=== PATIENT | female | born 1990 | race American Indian/Alaskan Native ===

== ENCOUNTER 2020-08-27 20:28 | Emergency (ER) | payer SELFPAY ==
--- NOTE | 2020-08-28 00:23 | Emergency Department Report ---
ED General Adult HPI - General Chief complaint: Urogenital-Female Stated complaint: LUMP RT BREAST/FEELS HARD Time Seen by Provider: 08/28/20 00:07 Source: patient Mode of arrival: Ambulatory Limitations: No Limitations - History of Present Illness Initial comments: 29-year-old -[place] female patient presents with complaints of right breast mass x1 year, tender over the past day. Patient states over the past year the mass has been enlarging. She denies any redness, swelling to the breast, nipple discharge, fever/chills/sweats, or history/family history of breast cancer. She reports she is to have her yearly physical in a few weeks. Severity scale (0 -10): 3 - Related Data Allergies Allergy/AdvReac Type Severity Reaction Status Date / Time No Known Allergies Allergy Unverified 08/27/20 22:00 ED Review of Systems ROS: Stated complaint: LUMP RT BREAST/FEELS HARD Other details as noted in HPI Constitutional: denies: diaphoresis, fever, malaise, weakness Cardiovascular: denies: chest pain Hematological/Lymphatic: denies: swollen glands ED Past Medical Hx - Past Medical History Previous Medical History?: Yes Hx Psychiatric Treatment: Yes (Bipolar Disorder) - Surgical History Past Surgical History?: No - Social History Smoking Status: Former Smoker Substance Use Type: Marijuana ED Physical Exam - General Limitations: No Limitations General appearance: alert, in no apparent distress - Head Head exam: Present: atraumatic, normocephalic - Eye Eye exam: Present: normal appearance. Absent: scleral icterus - Respiratory Respiratory exam: Present: other (Tender, mobile round approximately 1 to 2 cm nodule noted to right breast at about 10:00 without overlying erythema, skin changes, or nipple discharge noted). Absent: respiratory distress - Cardiovascular Cardiovascular Exam: Present: regular rate - Extremities Exam Extremities exam: Present: full ROM - Neurological Exam Neurological exam: Present: alert, oriented X3 - Psychiatric Psychiatric exam: Present: normal affect, normal mood - Skin Skin exam: Present: warm, dry, intact, normal color. Absent: rash, cyanosis, erythema ED Course Vital Signs 08/27/20 21:50 Temperature 98.5 F Pulse Rate 73 Respiratory 18 Rate Blood Pressure 113/73 O2 Sat by Pulse 100 Oximetry ED Medical Decision Making - Medical Decision Making 29-year-old -[place] female patient presents with complaints of right breast mass x1 year, tender over the past day. Patient states over the past year the mass has been enlarging. She denies any redness, swelling to the breast, nipple discharge, fever/chills/sweats, or history/family history of breast cancer. She reports she is to have her yearly physical in a few weeks. Suspect breast cyst given exam, however I do recommend patient follows up with her primary care doctor within 3 days and a breast specialist for further examination. She is well-appearing, her vitals are normal, she is stable for discharge home. Critical care attestation.: If time is entered above; I have spent that time in minutes in the direct care of this critically ill patient, excluding procedure time. ED Disposition Clinical Impression: Breast mass Disposition: DC-01 TO HOME OR SELFCARE Is pt being admited?: No Condition: Stable Instructions: Breast Cyst Referrals: PRIMARY CARE, [Referring] - 3-5 Days
== END 2020-08-28 00:30 | disposition home or self-care (01) ==
LOC: ED 20:28
CPT/HCPCS: 99282

== ENCOUNTER 2021-07-10 12:38 | Emergency (ER) | payer MEDICAID ==
[2021-07-10 16:45] LABS: Basophils % (Auto) 0.7 % (0.0-1.8); Hemoglobin 12.9 gm/dl (10.1-14.3); Lymphocytes # (Auto) 1.9 K/mm3 (1.2-5.4); Lymphocytes % (Auto) 43.3 % (13.4-35.0); Mean Corpuscular HGB Conc 34 % (30-34); Mean Corpuscular Volume 96 fl (79-97); Monocytes # (Auto) 0.4 K/mm3 (0.0-0.8); Monocytes % (Auto) 8.8 % (0.0-7.3); Platelet Count 363 K/mm3 (140-440); Red Blood Count 3.97 M/mm3 (3.65-5.03); Red Cell Distribution Width 13.7 % (13.2-15.2)
[2021-07-10 17:05] LABS: Alanine Aminotransferase 12 units/L (7-56); Albumin 4.6 g/dL (3.9-5); BUN/Creatinine Ratio 10; Blood Urea Nitrogen 8 mg/dL (7-17); Calcium 9.2 mg/dL (8.4-10.2); Hemolysis Index 9
--- NOTE | 2021-07-10 17:26 | Emergency Department Report ---
ED Female HPI - General Chief complaint: Vaginal Bleeding Stated complaint: /BLEEDING/ABD PAIN Source: patient Mode of arrival: Ambulatory Limitations: No Limitations - History of Present Illness Initial comments: 30-year-old female presents to the ED complaining vaginal spotting x1 day. She states that she had last normal menstrual cycle on June .patient states took a home test which was positive. Patient states that she noticed x3 days ago that she started having heavy bleeding and abdominal cramping that has since resolved. Patient denies any shortness of breath , chest pain ,nausea or vomiting. No acute distress noted. No ill appearance noted. MD Complaint: vaginal bleeding Onset/Timin -: days(s) Severity scale (0 -10): 0 Improves with: none Worsens with: none Associated Symptoms: denies other symptoms - Related Data Sexually active: Yes : 1 Para: 0 A: 1 Allergies Allergy/AdvReac Type Severity Reaction Status Date / Time No Known Allergies Allergy Unverified 08/27/20 22:00 ED Review of Systems ROS: Stated complaint: /BLEEDING/ABD PAIN Other details as noted in HPI Constitutional: denies: chills, fever Eyes: denies: eye pain, eye discharge, vision change ENT: denies: ear pain, throat pain Respiratory: denies: cough, shortness of breath, wheezing Cardiovascular: denies: chest pain, palpitations Endocrine: no symptoms reported Gastrointestinal: denies: abdominal pain, nausea, diarrhea Genitourinary: denies: urgency, dysuria, discharge Musculoskeletal: denies: back pain, joint swelling, arthralgia Skin: denies: rash, lesions Neurological: denies: headache, weakness, paresthesias Psychiatric: denies: anxiety, depression Hematological/Lymphatic: denies: easy bleeding, easy bruising ED Past Medical Hx - Past Medical History Previous Medical History?: Yes Hx Psychiatric Treatment: Yes (Bipolar Disorder) - Surgical History Past Surgical History?: No - Social History Smoking Status: Former Smoker Substance Use Type: Marijuana ED Physical Exam - General Limitations: No Limitations General appearance: alert, in no apparent distress - Head Head exam: Present: atraumatic, normocephalic - Eye Eye exam: Present: normal appearance - ENT ENT exam: Present: mucous membranes moist - Neck Neck exam: Present: normal inspection - Respiratory Respiratory exam: Present: normal lung sounds bilaterally. Absent: respiratory distress - Cardiovascular Cardiovascular Exam: Present: regular rate, normal rhythm. Absent: systolic murmur, diastolic murmur, rubs, gallop - GI/Abdominal GI/Abdominal exam: Present: soft, normal bowel sounds - Extremities Exam Extremities exam: Present: normal inspection - Back Exam Back exam: Present: normal inspection - Neurological Exam Neurological exam: Present: alert, oriented X3 - Psychiatric Psychiatric exam: Present: normal affect, normal mood - Skin Skin exam: Present: warm, dry, intact, normal color. Absent: rash ED Course Vital Signs 07/10/21 14:15 Temperature 98.1 F Pulse Rate 73 Respiratory 18 Rate Blood Pressure 113/74 O2 Sat by Pulse 100 Oximetry ED Medical Decision Making - Lab Data Result diagrams: 07/10/21 16:32 07/10/21 16:32 - Medical Decision Making 30-year-old female presents to the ED complaining vaginal spotting x1 day. She states that she had last normal menstrual cycle on June .patient states took a home test which was positive. Patient states that she noticed x3 days ago that she started having heavy bleeding and abdominal cramping that has since resolved. Patient denies any shortness of breath , chest pain ,nausea or vomiting. No acute distress noted. No ill appearance noted. Physical examination is unremarkable. hCG quant is less than 2. Rechecked the patient is resting quietly quietly and comfortable and feeling better. I discussed the results of diagnostic study, my clinical impression and the plan for further treatment with the patient. Patient agrees with plan and discharge at this present time. All question addressed. I have given the patient instruction regarding a diagnosis ,expectation ,follow- up and return precaution. I explained to the patient that emergent condition may arise and to return to the ED for new worsen and any new persisting condition. I have explained the importance of following up with the primary care physician or referral physician listed below has instructed. The patient verbalized understanding of discharge instruction. Abnormal Lab Results 07/10/21 07/10/21 07/10/21 16:32 16:32 16:32 WBC 4.4 L RBC 3.97 Hgb 12.9 Hct 38.0 MCV 96 MCH 33 H MCHC 34 RDW 13.7 Plt Count 363 Lymph % (Auto) 43.3 H [place] % (Auto) 8.8 H Eos % (Auto) 1.0 Baso % (Auto) 0.7 Lymph # (Auto) 1.9 [place] # (Auto) 0.4 Eos # (Auto) 0.0 Baso # (Auto) 0.0 Seg Neutrophils % 46.2 Seg Neutrophils # 2.0 Sodium 141 Potassium 3.9 Chloride 106.8 Carbon Dioxide 21 L Anion Gap 17 BUN 8 Creatinine 0.8 Estimated GFR > 60 BUN/Creatinine Ratio 10 Glucose 89 Calcium 9.2 Total Bilirubin 0.40 AST 15 ALT 12 Alkaline Phosphatase 61 Total Protein 6.7 Albumin 4.6 Albumin/Globulin Ratio 2.2 HCG, Quant < 2 Urine Color Urine Turbidity Urine pH Ur Specific [place] Urine Protein Urine Glucose (UA) Urine Ketones Urine Blood Urine Nitrite Urine Bilirubin Urine Urobilinogen Ur Leukocyte Esterase Urine WBC (Auto) Urine RBC (Auto) U Epithel Cells (Auto) Urine Mucus 07/10/21 17:03 WBC RBC Hgb Hct MCV MCH MCHC RDW Plt Count Lymph % (Auto) [place] % (Auto) Eos % (Auto) Baso % (Auto) Lymph # (Auto) [place] # (Auto) Eos # (Auto) Baso # (Auto) Seg Neutrophils % Seg Neutrophils # Sodium Potassium Chloride Carbon Dioxide Anion Gap BUN Creatinine Estimated GFR BUN/Creatinine Ratio Glucose Calcium Total Bilirubin AST ALT Alkaline Phosphatase Total Protein Albumin Albumin/Globulin Ratio HCG, Quant Urine Color Straw Urine Turbidity Clear Urine pH 6.0 Ur Specific [place] 1.014 Urine Protein <15 mg/dl Urine Glucose (UA) Neg Urine Ketones Neg Urine Blood Neg Urine Nitrite Neg Urine Bilirubin Neg Urine Urobilinogen < 2.0 Ur Leukocyte Esterase Neg Urine WBC (Auto) 1.0 Urine RBC (Auto) 1.0 U Epithel Cells (Auto) < 1.0 Urine Mucus Few Critical care attestation.: If time is entered above; I have spent that time in minutes in the direct care of this critically ill patient, excluding procedure time. ED Disposition Clinical Impression: Vaginal spotting Disposition: HOME / SELF CARE / HOMELESS Is pt being admited?: No Does the pt Need Aspirin: No Condition: Stable Instructions: Abnormal Uterine Bleeding Additional Instructions: Take medication as prescribed Return the ED for any worsening symptom Referrals: PRIMARY CARE [Primary Care Provider] - 3-5 Days [facility] [Provider Group] - 3-5 Days Forms: Work/School Release Form(ED) Time of Disposition: 17:53
[2021-07-10 17:39] LABS: Bilirubin,Urine NEG (Negative); Blood,Urine NEG (Negative); Color,Urine Straw (Yellow); Mucus,Urine FEW /HPF; Protein,Urine <15 mg/dL mg/dL (Negative); Urobilinogen,Urine < 2.0 mg/dL (<2.0)
[2021-07-10 18:19] VITALS: BP 127/75
== END 2021-07-10 18:19 | disposition home or self-care (01) ==
LOC: ED 12:38
DX: O20.8 Other hemorrhage in early pregnancy (principal); R10.9 Unspecified abdominal pain; Z3A.00 Weeks of gestation of pregnancy not specified
CPT/HCPCS: 36415; 80053; 81001; 84702; 85025; 99283